=== PATIENT | male | born 1975 | race Asian ===

== ENCOUNTER 2017-10-20 23:58 | Emergency (ER) | payer OTHER ==
[2017-10-21 00:34] VITALS: BP 131/87; PULSE 90; TEMP 97.8; BMI 30.7
--- NOTE | 2017-10-21 00:41 | PDOC ---
History of Present Illness - General History Source: Patient Exam Limitations: No Limitations - History of Present Illness Initial Comments: 10/21/17 00:53 The patient is a 42 year old male, with a significant past medical history of asthma, diabetes, hypertension and hyperlipidemia, who presents to the emergency department with right ear pain for approximately 4 days. The patient reports right ear pain, which he describes as a throbbing for several days. Patient reports associated sinus congestion and difficulty swallowing secondary to pain, but denies any runny nose, sore throat, fever, chills, and cough. Today , patient endorses new onset heading, but denies any dizziness or lightheadedness. Patient states his symptoms began shortly after inserting a Qtip in his ears 4 days ago. He denies any abdominal pain, nausea, or vomiting. He denies any recent travel or sick contacts. Allergies: NKDA Past Surgical History: None reported Social History: Current everyday smoker. No ETOH or recreational drug use. <Benoit Dotson - Last Filed: 10/21/17 00:53> <Arline Estevez - Last Filed: 10/21/17 01:46> - General Chief Complaint: Ear Problem Stated Complaint: EAR PAIN Time Seen by Provider: 10/21/17 00:40 Past History <Benoit Dotson - Last Filed: 10/21/17 00:53> - Past Medical History Asthma: Yes COPD: No Diabetes: Yes HTN: Yes Hypercholesterolemia: Yes - Immunization History Immunization Up to Date: Yes - Suicide/Smoking/Psychosocial Hx Smoking History: Current every day smoker Have you smoked in the past 12 months: Yes Number of Cigarettes Smoked Daily: 10 Information on smoking cessation initiated: No 'Breaking Loose' booklet given: 05/24/16 Hx Alcohol Use: No Drug/Substance Use Hx: No Substance Use Type: None <Arline Estevez - Last Filed: 10/21/17 01:46> - Past Medical History Allergies/Adverse Reactions: Allergies Allergy/AdvReac Type Severity Reaction Status Date / Time No Known Allergies Allergy Verified 10/21/17 00:23 Home Medications: Ambulatory Orders Albuterol Sulfate Inhaler - [Ventolin HFA Inhaler -] 2 inh IH Q6H #1 inh Atorvastatin Ca [Lipitor] 40 mg PO HS #30 tablet 08/31/15 Metformin HCl 500 mg PO BID #60 tablet 08/31/15 Cyclobenzaprine HCl [Flexeril -] 10 mg PO TID #21 tablet 05/29/16 Review of Systems - Review of Systems Able to Perform ROS?: Yes Comments:: 10/21/17 00:53 GENERAL/CONSTITUTIONAL: No fever or chills. No weakness. HEAD, EYES, EARS, NOSE AND THROAT: +Right ear pain, nasal congestion, difficulty swallowing secondary to ear pain. No change in vision. No ear discharge. No sore throat. No rhinorrhea. GASTROINTESTINAL: No nausea, vomiting, diarrhea or constipation. GENITOURINARY: No dysuria, frequency, or change in urination. CARDIOVASCULAR: No chest pain or shortness of breath. RESPIRATORY: No cough, wheezing, or hemoptysis. MUSCULOSKELETAL: No joint or muscle swelling or pain. No neck or back pain. SKIN: No rash NEUROLOGIC: No headache, vertigo, loss of consciousness, or change in strength/ sensation. ENDOCRINE: No increased thirst. No abnormal weight change. HEMATOLOGIC/LYMPHATIC: No anemia, easy bleeding, or history of blood clots. ALLERGIC/IMMUNOLOGIC: No hives or skin allergy. <Benoit Dotson - Last Filed: 10/21/17 00:53> *Physical Exam - Vital Signs Last Vital Signs Temp Pulse Resp BP Pulse Ox 97.8 F 90 20 131/87 99 10/21/17 00:24 10/21/17 00:24 10/21/17 00:24 10/21/17 00:24 10/21/17 00:24 - Physical Exam Comments: 10/21/17 00:54 Constitutional: Awake, alert, oriented. No acute distress. Head: Mild right facial swelling. Normocephalic. Atraumatic Eyes: PERRL. EOMI. Conjunctivae are not pale. ENT: Moderate tenderness to right mastoid. Right TM erythema. Mucous membranes are moist and intact. Posterior pharynx without exudates or erythema. Uvula midline. Neck: Supple. Full ROM. No lymphadenopathy. Cardiovascular: Regular rate. Regular rhythm. S1, S2 regular. Distal pulses are 2+ and symmetric. Pulmonary/Chest: No evidence of respiratory distress. Clear to auscultation bilaterally No wheezing, rales or rhonchi. Abdominal: Soft and non-distended. There is no tenderness. No rebound, guarding or rigidity. No organomegaly. No palpable masses. Good bowel sounds. Back: No CVA tenderness. Musculoskeletal: No edema. No cyanosis. No clubbing. Full range of motion in all extremities. No calf tenderness. Radial/pedal pulses are intact and 2+ bilaterally Skin: Skin is warm and dry. No petechiae. No purpura. Neurological: Alert and oriented to person, place, and time. Cranial nerves II -XII are grossly intact. Normal speech. Strength is grossly symmetric. No sensory deficits. Psychiatric: Good eye contact. Normal interaction, affect and behavior. <Benoit Dotson - Last Filed: 10/21/17 00:53> - Vital Signs Last Vital Signs Temp Pulse Resp BP Pulse Ox 97.8 F 90 20 131/87 99 10/21/17 00:24 10/21/17 00:24 10/21/17 00:24 10/21/17 00:24 10/21/17 00:24 <Arline Estevez - Last Filed: 10/21/17 01:46> ED Treatment Course - LABORATORY CBC & Chemistry Diagram: 10/21/17 00:58 10/21/17 00:58 <Arline Estevez - Last Filed: 10/21/17 01:46> Medical Decision Making - Medical Decision Making 10/21/17 01:04 42yo male with R ear pain -pt with otitis media -ttp over R mastoid -concern for R otitis media with poss mastoiditis -will check labs, ct sinus for further eval of mastoid air cells -will give iv abx -will give ivf hydration, pain control -pt updated on plan and agrees with the plan 10/21/17 01:45 pt will be signed out to the oncoming ED physician pending CT sinus <Arline Estevez - Last Filed: 10/21/17 01:46> *DC/Admit/Observation/Transfer - Attestations Scribe Attestion: 10/21/17 00:56 Documentation prepared by Benoit Dotson, acting as medical representative for Arline Estevez DO. <Benoit Dotson - Last Filed: 10/21/17 00:53> - Attestations Physician Attestion: 10/21/17 01:46 I, Dr. Arline Estevez, DO, attest that this document has been prepared under my direction and personally reviewed by me in its entirety. I further attest, that it accurately reflects all work, treatment, procedures and medical decision -making performed by me. <Arline Estevez - Last Filed: 10/21/17 01:46> Diagnosis at time of Disposition: Diabetes, Right otitis media - Referrals Referrals: Teresita Rodríguez MS [Primary Care Provider] - - Patient Instructions - Post Discharge Activity
[2017-10-21] MEDS ORDERED: SODIUM CHLORIDE 0.9% 1000 ML INFUS.BAG IV ONE (00:51)
[2017-10-21] MEDS ORDERED: KETOROLAC TROMETHAMINE 30 MG/1 ML VIAL IVPUSH ONE (00:51)
[2017-10-21] MEDS ORDERED: CLINDAMYCIN 600MG PREMIX IVPB 600 MG/50 ML BAG IVPB ONE ×2 (00:54→01:05)
[2017-10-21] MEDS ORDERED: ACETAMINOPHEN 1000 MG/100 ML VIAL (NON FORMULARY) IVPB ONE (00:55)
[2017-10-21] MEDS ORDERED: KETOROLAC TROMETHAMINE 30 MG/1 ML VIAL ONE (01:00)
[2017-10-21 01:05] LABS: BASO % 0.4 % (0-2.0); EOS % 0.6 % (0-4.5); HEMATOCRIT 42.9 % (35.4-49); HEMOGLOBIN 14.8 GM/dL (11.7-16.9); MCH 31.4 pg (25.7-33.7); MCHC 34.5 g/dl (32.0-35.9); MEAN PLT VOLUME 9.4 fl (7.5-11.1); PLATELET COUNT 173 K/MM3 (134-434); RBC 4.71 M/mm3 (4.00-5.60); RDW 13.2 % (11.9-15.9); WHITE BLOOD COUNT 10.3 K/mm3 (4.0-10.0)
[2017-10-21] MEDS ORDERED: ACETAMINOPHEN INJECTION 100 ML IVPB ONE (01:05)
[2017-10-21 01:40] LABS: ALBUMIN 4.2 g/dl (3.4-5.0); ANION GAP 11 (8-16); BILIRUBIN,TOTAL 0.6 mg/dL (0.2-1.0); BLOOD UREA NITROGEN 18 mg/dL (7-18); CALCIUM 8.9 mg/dL (8.5-10.1); CHLORIDE 104 mmol/L (98-107); CO2 25 mmol/L (21-32); CREATININE 0.7 mg/dL (0.7-1.3); GLUCOSE,RANDOM 175 mg/dL (74-106); POTASSIUM 3.9 mmol/L (3.5-5.1); SGOT/AST 23 U/L (15-37); SGPT/ALT 72 U/L (12-78); SODIUM 140 mmol/L (136-145); TOT PROT 7.7 g/dl (6.4-8.2)
[2017-10-21 01:41] LABS: ALK PHOS 135 U/L (45-117)
--- NOTE | 2017-10-21 03:00 | PDOC ---
*Physical Exam - Vital Signs Last Vital Signs Temp Pulse Resp BP Pulse Ox 97.8 F 90 20 131/87 99 10/21/17 00:24 10/21/17 00:24 10/21/17 00:24 10/21/17 00:24 10/21/17 00:24 ED Treatment Course - LABORATORY CBC & Chemistry Diagram: 10/21/17 00:58 10/21/17 00:58 - ADDITIONAL ORDERS Additional order review: Laboratory Results 10/21/17 00:58 Sodium 140 Potassium 3.9 Chloride 104 Carbon Dioxide 25 Anion Gap 11 BUN 18 Creatinine 0.7 Creat Clearance w eGFR > 60 Random Glucose 175 H Calcium 8.9 Total Bilirubin 0.6 AST 23 D ALT 72 D Alkaline Phosphatase 135 H D Total Protein 7.7 D Albumin 4.2 10/21/17 00:58 RBC 4.71 MCV 91.0 MCHC 34.5 RDW 13.2 MPV 9.4 Neutrophils % 71.0 D Lymphocytes % 23.0 D Monocytes % 5.0 Eosinophils % 0.6 Basophils % 0.4 - Medications Given in the ED: ED Medications Discontinued Medications Generic Name Dose Route Start Last Admin Trade Name Freq PRN Reason Stop Dose Admin Acetaminophen 1,000 mg 10/21/17 00:55 10/21/17 01:06 Ofirmev Injection - IVPB 10/21/17 00:56 1,000 mg ONCE ONE Administration Clindamycin Phosphate 600 mg in 50 mls @ 100 mls/hr 10/21/17 00:54 10/21/17 01:09 Cleocin 600 Mg Premix Ivpb - IVPB 10/21/17 01:23 100 mls/hr ONCE ONE Administration Ketorolac Tromethamine 30 mg 10/21/17 00:51 10/21/17 01:03 Toradol Injection - IVPUSH 10/21/17 00:52 30 mg ONCE ONE Administration Sodium Chloride 1,000 ml 10/21/17 00:51 10/21/17 01:04 Normal Saline - IV 10/21/17 00:52 1,000 ml ONCE ONE Administration *DC/Admit/Observation/Transfer Diagnosis at time of Disposition: Diabetes, Right otitis media, Ethmoidal sinusitis - Discharge Dispostion Disposition: HOME Condition at time of disposition: Stable Admit: No - Referrals Referrals: Teresita Rodríguez MS [Primary Care Provider] - Stephen Barfield MD [Staff Physician] - - Patient Instructions Printed Discharge Instructions: DI for Otitis Media (Middle Ear Infection)- Child, DI for Sinusitis - Post Discharge Activity
--- NOTE | 2017-10-21 09:47 | PDOC ---
Patient Follow-up (Call Back) - Post ED Follow - Up Condition at time of discharge: Stable Disposition at time of original discharge: HOME Reason for Call Back: Radiology (Patient had CT of sinuses done last night. On read this morning by , by 5 mm nodule in the right ear canal. This was not reported on [facility]. Called patient and made aware. He will follow-up with Dr. Lico FERRARI.)
== END 2017-10-21 03:01 | disposition home or self-care (01) ==
LOC: JER 23:58
PROC: 3E03329 Introduction of Other Anti-infective into Peripheral Vein, Percutaneous Approach (ICD-10-PCS; principal; 2017-10-20)
PROC: 3E033NZ Introduction of Analgesics, Hypnotics, Sedatives into Peripheral Vein, Percutaneous Approach (ICD-10-PCS; 2017-10-20)
PROC: 3E0333Z Introduction of Anti-inflammatory into Peripheral Vein, Percutaneous Approach (ICD-10-PCS; 2017-10-20)
DX: H66.91 Otitis media, unspecified, right ear (principal); R22.9 Localized swelling, mass and lump, unspecified; I10 Essential (primary) hypertension; E11.9 Type 2 diabetes mellitus without complications; Z79.84 Long term (current) use of oral hypoglycemic drugs; J45.909 Unspecified asthma, uncomplicated; E78.00 Pure hypercholesterolemia, unspecified
CPT/HCPCS: 36415; 70486-TC; 80053; 85025; 99282-25; J0131; J7030

== ENCOUNTER 2018-05-14 17:27 | Emergency (ER) | payer OTHER ==
[2018-05-14 17:35] VITALS: BP 161/89; PULSE 85; TEMP 98.6; BMI 32.3
[2018-05-14] MEDS ORDERED: KETOROLAC TROMETHAMINE 60 MG/2 ML VIAL IM ONE (17:55)
[2018-05-14] MEDS ORDERED: CYCLOBENZAPRINE HCL 10 MG TABLET (FP) PO ONE (17:58)
[2018-05-14] MEDS ORDERED: SODIUM CHLORIDE 1,000 ML IV STA (18:15)
[2018-05-14] MEDS ORDERED: morphine CARPU-JECT 4 MG/1 ML DISP.SYRIN IVPUSH ONE (18:15)
[2018-05-14 18:35] LABS: BASO % 0.4 % (0-2.0); EOS % 1.3 % (0-4.5); HEMATOCRIT 43.2 % (35.4-49); HEMOGLOBIN 15.2 GM/dL (11.7-16.9); LYMPH % 38.7 % (8-40); MCH 32.3 pg (25.7-33.7); MCHC 35.3 g/dl (32.0-35.9); MEAN CELL VOLUME 91.5 fl (80-96); MONO % 8.1 % (3.8-10.2); NEUT % 51.5 % (42.8-82.8); PLATELET COUNT 182 K/MM3 (134-434); RBC 4.72 M/mm3 (4.00-5.60); RDW 13.1 % (11.9-15.9); WHITE BLOOD COUNT 9.7 K/mm3 (4.0-10.0)
[2018-05-14] MEDS ORDERED: MORPHINE SULFATE 2 MG/ML VIAL ONE (18:37)
[2018-05-14 18:44] LABS: URINE APPEARANCE CLEAR; URINE BILIRUBIN NEGATIVE (<2.0 mg/dL); URINE COLOR LTYELLOW; URINE GLUCOSE (UA) 2+ (NEGATIVE); URINE KETONE NEGATIVE (NEGATIVE); URINE LEUK ESTERASE NEGATIVE (NEGATIVE); URINE NITRITE NEGATIVE (NEGATIVE); URINE PROTEIN NEGATIVE (NEGATIVE)
[2018-05-14 19:10] LABS: ALBUMIN 4.3 g/dl (3.4-5.0); ALK PHOS 128 U/L (45-117); ANION GAP 9 MMOL/L (8-16); BILIRUBIN,TOTAL 0.6 mg/dL (0.2-1); BLOOD UREA NITROGEN 13 mg/dL (7-18); CALCIUM 8.6 mg/dL (8.5-10.1); CHLORIDE 104 mmol/L (98-107); CO2 26 mmol/L (21-32); CREATININE 0.7 mg/dL (0.55-1.3); GLUCOSE,RANDOM 155 mg/dL (74-106); POTASSIUM 4.3 mmol/L (3.5-5.1); SGOT/AST 34 U/L (15-37); SGPT/ALT 78 U/L (13-61); SODIUM 138 mmol/L (136-145); TOT PROT 7.7 g/dl (6.4-8.2)
--- NOTE | 2018-05-14 19:31 | PDOC ---
History of Present Illness <Tiffani Morin - Last Filed: 05/14/18 22:03> - General History Source: Patient Exam Limitations: No Limitations - History of Present Illness Initial Comments: 05/14/18 19:25 Pt is a 43yo m with PMH of DM, HTN, HLD presenting to ED with complaints of lower back pain with pain radiating to the groin. Pain started yesterday when patient finished working. Pain was sharp in lower back, constant 10/10 moving makes it worse. Pt said today the pain in going into his groin and suprapubic pain with paresthesia on the lateral L thigh. Admits to urinary urgency and frequency. Denies fever, chills, injury, n/v/d incontinence, saddle anesthesia, weakness, numbness, chest pain, SOB. Tried to use heating pad and burned himself. PMD: Carla PMH: see hpi PSH: see hpi Meds: see med rec Social: smokes 1/2ppd Allergies: nkda <Muna Moyer - Last Filed: 05/15/18 00:59> - General Chief Complaint: Back Pain Stated Complaint: BACK PAIN Time Seen by Provider: 05/14/18 17:48 Past History <Tiffani Morin - Last Filed: 05/14/18 22:03> - Past Medical History Asthma: Yes COPD: No Diabetes: Yes HTN: Yes Hypercholesterolemia: Yes - Immunization History Immunization Up to Date: Yes - Suicide/Smoking/Psychosocial Hx Smoking History: Current every day smoker Have you smoked in the past 12 months: Yes Number of Cigarettes Smoked Daily: 10 Information on smoking cessation initiated: No 'Breaking Loose' booklet given: 05/24/16 Hx Alcohol Use: No Drug/Substance Use Hx: No Substance Use Type: None <Muna Moyer - Last Filed: 05/15/18 00:59> - Past Medical History Allergies/Adverse Reactions: Allergies Allergy/AdvReac Type Severity Reaction Status Date / Time No Known Allergies Allergy Verified 05/14/18 17:35 Home Medications: Ambulatory Orders Albuterol Sulfate Inhaler - [Ventolin HFA Inhaler -] 2 inh IH Q6H #1 inh Atorvastatin Ca [Lipitor] 40 mg PO HS #30 tablet 08/31/15 metFORMIN HCL [Metformin HCl] 500 mg PO BID #60 tablet 08/31/15 Loratadine [Claritin] 10 mg PO DAILY #10 tablet 10/21/17 Diazepam [Valium] 5 mg PO Q8H PRN #10 tablet MDD 3 05/14/18 Ibuprofen 600 mg PO TID PRN #90 tablet MDD 3 05/14/18 Ibuprofen [Motrin -] 600 mg PO TID PRN #90 tablet MDD 3 05/14/18 Oxycodone HCl/Acetaminophen [Percocet 5-325 mg Tablet] 1 tab PO Q4H PRN #15 tablet MDD 6 05/14/18 Review of Systems - Review of Systems Constitutional: No: Chills, Fever HEENTM: No: Symptoms Reported Respiratory: No: Cough, Shortness of Breath Cardiac (ROS): No: Chest Pain, Lightheadedness, Palpitations, Syncope ABD/GI: Yes: See HPI, Abdominal cramping (suprapubic). No: Blood Streaked Bowels, Constipated, Diarrhea, Nausea, Vomiting, Tarry Stools : Yes: See HPI, Frequency, Flank Pain, Urgency. No: Burning, Hematuria, Incontinence, Testicular Mass, Testicular Swelling, Testicular Pain Musculoskeletal: Yes: See HPI, Back Pain (lower back pain bilaterally L>R). No : Joint Pain, Joint Swelling, Muscle Weakness, Neck Pain Integumentary: Yes: Other (blister on back ) Neurological: Yes: Paresthesia (L thigh). No: Headache, Seizure, Tingling, Weakness, Ataxia <Muna Moyer - Last Filed: 05/15/18 00:59> *Physical Exam - Vital Signs Last Vital Signs Temp Pulse Resp BP Pulse Ox 98.6 F 85 18 161/89 96 05/14/18 17:33 05/14/18 17:33 05/14/18 17:33 05/14/18 17:33 05/14/18 17:33 <Tiffani Morin - Last Filed: 05/14/18 22:03> - Vital Signs Last Vital Signs Temp Pulse Resp BP Pulse Ox 98.6 F 85 18 161/89 96 05/14/18 17:33 05/14/18 17:33 05/14/18 17:33 05/14/18 17:33 05/14/18 17:33 - Physical Exam General Appearance: Yes: Nourished, Appropriately Dressed, Moderate Distress HEENT: positive: EOMI, TJ, Normal ENT Inspection Neck: positive: Trachea midline, Supple. negative: Lymphadenopathy (R), Lymphadenopathy (L) Respiratory/Chest: positive: Lungs Clear, Normal Breath Sounds. negative: Crackles, Rales, Rhonchi, Stridor, Wheezing Cardiovascular: positive: Regular Rhythm, Regular Rate, S1, S2. negative: Edema , JVD, Murmur Vascular Pulses: Carotid (R): 2+, Carotid (L): 2+, Dorsalis-Pedis (R): 2+, Doralis-Pedis (L): 2+ Gastrointestinal/Abdominal: positive: Normal Bowel Sounds, Soft. negative: Distended, Guarding, Rebound, Tenderness, Hernia Male Genitalia: positive: normal genitalia. negative: testicular tenderness, testicular mass Musculoskeletal: positive: CVA Tenderness, CVA Tenderness (R), CVA Tenderness (L ), Muscle Spasm, Other (pain with SLR in back, not radiating down to legs on both sides.). 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 negative: Sensory Deficit <Muna Moyer - Last Filed: 05/15/18 00:59> ED Treatment Course - LABORATORY CBC & Chemistry Diagram: 05/14/18 18:18 05/14/18 18:18 - ADDITIONAL ORDERS Additional order review: Laboratory Results 05/14/18 05/14/18 18:18 18:18 Sodium 138 Potassium 4.3 Chloride 104 Carbon Dioxide 26 Anion Gap 9 BUN 13 Creatinine 0.7 Creat Clearance w eGFR > 60 Random Glucose 155 H Calcium 8.6 Total Bilirubin 0.6 AST 34 ALT 78 H Alkaline Phosphatase 128 H Total Protein 7.7 Albumin 4.3 Urine Color Ltyellow Urine Appearance Clear Urine pH 7.0 Ur Specific [place] 1.017 Urine Protein Negative Urine Glucose (UA) 2+ H Urine Ketones Negative Urine Blood Negative Urine Nitrite Negative Urine Bilirubin Negative Urine Urobilinogen 2.0 Ur Leukocyte Esterase Negative 05/14/18 18:18 RBC 4.72 MCV 91.5 MCHC 35.3 RDW 13.1 MPV 9.0 Neutrophils % 51.5 D Lymphocytes % 38.7 D Monocytes % 8.1 Eosinophils % 1.3 D Basophils % 0.4 - Medications Given in the ED: ED Medications Discontinued Medications Generic Name Dose Route Start Last Admin Trade Name Sanam PRN Reason Stop Dose Admin Cyclobenzaprine HCl 10 mg 05/14/18 17:58 05/14/18 18:42 Flexeril - PO 05/14/18 17:59 Not Given ONCE ONE Sodium Chloride 1,000 mls @ 1,000 mls/hr 05/14/18 18:15 05/14/18 18:35 Normal Saline - IV 05/14/18 19:14 1,000 mls/hr ASDIR STA Administration Ketorolac Tromethamine 60 mg 05/14/18 17:55 05/14/18 18:41 Toradol Injection - IM 05/14/18 17:56 Not Given ONCE ONE Ketorolac Tromethamine 30 mg 05/14/18 21:05 05/14/18 21:06 Toradol Injection - IM 05/14/18 21:06 30 mg ONCE ONE Administration Morphine Sulfate 2 mg 05/14/18 18:15 05/14/18 18:39 Morphine Injection - IVPUSH 05/14/18 18:16 2 mg ONCE ONE Administration <Tiffani Morin - Last Filed: 05/14/18 22:03> - LABORATORY CBC & Chemistry Diagram: 05/14/18 18:18 05/14/18 18:18 - ADDITIONAL ORDERS Additional order review: Laboratory Results 05/14/18 05/14/18 18:18 18:18 Sodium 138 Potassium 4.3 Chloride 104 Carbon Dioxide 26 Anion Gap 9 BUN 13 Creatinine 0.7 Creat Clearance w eGFR > 60 Random Glucose 155 H Calcium 8.6 Total Bilirubin 0.6 AST 34 ALT 78 H Alkaline Phosphatase 128 H Total Protein 7.7 Albumin 4.3 Urine Color Ltyellow Urine Appearance Clear Urine pH 7.0 Ur Specific [place] 1.017 Urine Protein Negative Urine Glucose (UA) 2+ H Urine Ketones Negative Urine Blood Negative Urine Nitrite Negative Urine Bilirubin Negative Urine Urobilinogen 2.0 Ur Leukocyte Esterase Negative 05/14/18 18:18 RBC 4.72 MCV 91.5 MCHC 35.3 RDW 13.1 MPV 9.0 Neutrophils % 51.5 D Lymphocytes % 38.7 D Monocytes % 8.1 Eosinophils % 1.3 D Basophils % 0.4 - RADIOLOGY Radiology Studies Ordered: Category Date Time Status SPIRAL- RENAL-STONE CT [CT] Stat CT Scan 05/14/18 18:16 Ordered - Medications Given in the ED: ED Medications Discontinued Medications Generic Name Dose Route Start Last Admin Trade Name Freq PRN Reason Stop Dose Admin Cyclobenzaprine HCl 10 mg 05/14/18 17:58 05/14/18 18:42 Flexeril - PO 05/14/18 17:59 Not Given ONCE ONE Sodium Chloride 1,000 mls @ 1,000 mls/hr 05/14/18 18:15 05/14/18 18:35 Normal Saline - IV 05/14/18 19:14 1,000 mls/hr ASDIR STA Administration Ketorolac Tromethamine 60 mg 05/14/18 17:55 05/14/18 18:41 Toradol Injection - IM 05/14/18 17:56 Not Given ONCE ONE Morphine Sulfate 2 mg 05/14/18 18:15 05/14/18 18:39 Morphine Injection - IVPUSH 05/14/18 18:16 2 mg ONCE ONE Administration <Muna Moyer - Last Filed: 05/15/18 00:59> Medical Decision Making - Medical Decision Making 05/14/18 19:29 Pt is a 43yo m with PMH of DM, HTN, HLD presenting to ED with complaints of lower back pain with pain radiating to the groin. +urgency Vitals: Selected Entries 05/14/18 17:33 Temperature 98.6 F Pulse Rate 85 Respiratory 18 Rate Blood Pressure 161/89 Blood Pressure 113 Mean O2 Sat by Pulse 96 Oximetry (%) PE: pain reproducible with SLT, no pain down leg. Blister on lower back, clean no erythema. flank tenderness. normal testicular exam. DDx: sciatica, cauda equina, nephrolithasis, pyelonephritis, fracture Low suspicion for fracture given pt does not have injury. Was lifting things at work, could have sciatica. Poss nephrolithiasis or pyelo given urinary symptoms. Higher suspicion for sciatia although SLT negative. orderd cbc, cmp, ua, ucx. PT given fluids and morphine (flexeril and toradol given by RME) 05/14/18 19:34 Laboratory Tests 05/14/18 05/14/18 05/14/18 18:18 18:18 18:18 WBC 9.7 RBC 4.72 Hgb 15.2 Hct 43.2 Plt Count 182 Sodium 138 Potassium 4.3 Chloride 104 BUN 13 Creatinine 0.7 Random Glucose 155 H ALT 78 H Alkaline Phosphatase 128 H Urine Glucose (UA) 2+ H Urine Ketones Negative Urine Blood Negative Urine Nitrite Negative Urine Bilirubin Negative Urine Urobilinogen 2.0 Ur Leukocyte Esterase Negative No evidence of UTI, low suspicion for pyelo or septic stone (if CT positive for stone). No white count, makes abscess less likely. Waiting CT scan 05/14/18 21:18 CT: *Moderate diffuse micro-nodularity throughout the liver. Findings may be due to hepatic steatosis, metastatic disease, regenerating nodules, or other infiltrative liver disorders. Recommend dedicated hepatic MRI for further evaluation. The gallbladder, pancreas, adrenal glands, and spleen are grossly unremarkable. No renal or urinary calculi. No AAA. No evidence for diverticulitis, appendicitis, small bowel obstruction, free fluid, or free air. Small right inguinal hernia containing fat. 05/14/18 21:20 Pt complaining of back pain. Records show toradol and flexeril were given to patient however they were not. Gave 30mg Toradol will reevaluate Pt most likely has sciatica or back strain. low suspicion for fracture given pt does not recall injury. Pt aware of fatty liver. Pt hemodynamically stable and pain controlled with toradol. Can be dc home . given GI and neuro follow up. <Muna Moyer - Last Filed: 05/15/18 00:59> *DC/Admit/Observation/Transfer <Tiffani Morin - Last Filed: 05/14/18 22:03> - Discharge Dispostion Decision to Admit order: No <Muna Moyer - Last Filed: 05/15/18 00:59> Diagnosis at time of Disposition: Back pain Qualifiers: Back pain location: low back pain Chronicity: acute Back pain laterality: bilateral Sciatica presence: with sciatica Sciatica laterality: sciatica of left side Qualified Code(s): M54.42 - Lumbago with sciatica, left side - Discharge Dispostion Disposition: HOME Condition at time of disposition: Good - Prescriptions Prescriptions: Diazepam [Valium] 5 mg PO Q8H PRN #10 tablet MDD 3 PRN Reason: Muscle Spasms Ibuprofen 600 mg PO TID PRN #90 tablet MDD 3 PRN Reason: Pain Ibuprofen [Motrin -] 600 mg PO TID PRN #90 tablet MDD 3 PRN Reason: Pain Oxycodone HCl/Acetaminophen [Percocet 5-325 mg Tablet] 1 tab PO Q4H PRN #15 tablet MDD 6 PRN Reason: Pain - Referrals Referrals: Teresita Rodríguez MS [Primary Care Provider] - Darryn Eckert MD [Staff Physician] - Juan Massey DO [Staff Physician] - - Patient Instructions Printed Discharge Instructions: DI for Low Back Pain Additional Instructions: You were seen here today for back pain. Your tests were normal. The CT scan showed a fatty liver. I recommend following up with a Head Holder for this. You will be given prescriptions to help with the pain and spasms. MOtrin and Valium. Take as directed. 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 Please follow up with a solar energy engineer for your liver: Dr. Massey I also recommend following up with a neurologist for your back pain: Dr. Eckert As always, make an appointment to see your doctor regularly Come back to the emergency room if your pain gets worse, you are unable to walk , you have numbness in your legs, you start having incontinence, or if any new concerning symptom develops. Thank you - Post Discharge Activity
--- NOTE | 2018-05-14 20:46 | PDOC ---
Attending Attestation - ED Attending Attestation I have performed the following: I have examined & evaluated the patient, The case was reviewed & discussed with the resident, I agree w/resident's findings & plan, Exceptions are as noted - Physicial Exam PE: 05/14/18 20:44 awake alert lungs clear bilaterally heart rrr no mrg. abd soft nt nd. ext wwp. no midline spinal tenderness. paraspinal muscle spasm bilaterally. positive straight leg raise on left. sensation intact bilat lower ext. no saddle anesthesia. 5/5 bilat lower ext strength. skin warm and dry no rash. nuero alert oriented x 3. symmetric strength. - Medical Decision Making 05/14/18 20:45 pt with likely msk starin, lumbar strain sciatica. however due to c/o urinary sxs, and sharp nature to pain will obtain ct spiral. and ua. pain control with toradol and muscle relaxers. narcotics as needed. <Tiffani Morin - Last Filed: 05/14/18 20:44> - HPI HPI: 05/14/18 20:46 The patient is a 43-year-old male with a past medical history significant for HTN, HLD, and DM presents to the emergency department with lower back pain. The patient presents with a sudden onset of lower back pain that presented yesterday , with radiation to the groin. The patient reports the pain is constant with sharp quality, thats exacerbated with movement, with improvement noted with laying down. The patient reports associated concern of increased urgency to urinate and numbness down the L. leg denies shooting pain. Denies nausea, vomiting, diarrhea, dysuria, hematuria, fever, chills, chest pain or shortness of breath. Allergies: NKA Social history: Current daily smoker. No past or present use of alcohol or recreational drug. PCP: Teresita Rodríguez MS - Medical Decision Making 05/14/18 20:46 Documentation prepared by Tori Velez, acting as medical equipment repair technician for Tiffani Morin MD. <Tori Velez - Last Filed: 05/14/18 20:47>
[2018-05-14] MEDS ORDERED: KETOROLAC TROMETHAMINE 30 MG/1 ML VIAL IM ONE (21:05)
[2018-05-14] MEDS ORDERED: KETOROLAC TROMETHAMINE 30 MG/1 ML VIAL ONE (21:06)
== END 2018-05-14 22:05 | disposition home or self-care (01) ==
LOC: JER 17:27 → JERFT 17:27 → JER 22:05
PROC: 3E0337Z Introduction of Electrolytic and Water Balance Substance into Peripheral Vein, Percutaneous Approach (ICD-10-PCS; principal; 2018-05-14)
PROC: 3E033NZ Introduction of Analgesics, Hypnotics, Sedatives into Peripheral Vein, Percutaneous Approach (ICD-10-PCS; 2018-05-14)
PROC: 3E0233Z Introduction of Anti-inflammatory into Muscle, Percutaneous Approach (ICD-10-PCS; 2018-05-14)
DX: M54.42 Lumbago with sciatica, left side (principal); K76.0 Fatty (change of) liver, not elsewhere classified
CPT/HCPCS: 36415; 74176; 80053; 81003; 85025; 87086; 96361; 96372; 96374; 99283-25; J7030

== ENCOUNTER 2022-07-25 16:22 | Inpatient (IN) | payer OTHER ==
[2022-07-25 16:53] VITALS: BMI 30.7
[2022-07-25] MEDS ORDERED: IBUPROFEN 400 MG TABLET (FP) PO ONE ×2 (17:35→17:42)
[2022-07-25] MEDS: ALBUTEROL SO4 2.5/IPRATROPIUM 0.5 INH SOL 3 ML VIAL.NEB. NEB SCH ×3 (17:49→19:20)
[2022-07-25 18:06] LABS: BASO % 0.4 % (0-2.0); EOS % 0.2 % (0-4.5); HEMATOCRIT 43.7 % (35.4-49); HEMOGLOBIN 14.7 GM/dL (11.7-16.9); LYMPH % 15.4 % (8-40); MCHC 33.6 g/dl (32.0-35.9); MEAN CELL VOLUME 92.1 fl (80-96); MONO % 3.9 % (3.8-10.2); NEUT % 80.1 % (42.8-82.8); PLATELET COUNT 204 10^3/uL (134-434); RBC 4.75 M/mm3 (4.00-5.60); RDW 13.8 % (11.9-15.9); WHITE BLOOD COUNT 11.7 K/mm3 (4.0-10.0)
[2022-07-25 18:07] LABS: ALBUMIN 4.3 g/dl (3.4-5.0)
[2022-07-25 18:10] LABS: CREATININE 0.9 mg/dL (0.55-1.3)
[2022-07-25 18:11] LABS: BILIRUBIN,TOTAL 1.2 mg/dL (0.2-1); TOT PROT 7.6 g/dl (6.4-8.2)
[2022-07-25 18:15] LABS: N-TERMINAL BNP 133.1 pg/ml (5-125)
[2022-07-25 18:17] LABS: INR 1.06 (0.83-1.09); PROTHROMBIN TIME (PATIENT) 12.2 SEC (9.7-13.0)
[2022-07-25 18:19] LABS: ACTIVATED PTT 32.8 SECONDS (25.2-36.5)
[2022-07-25] MEDS ORDERED: MAGNESIUM SULF 50% (8.12 MEQ/2 ML-1 GM VIAL) IVPB ONE (18:57)
[2022-07-25] MEDS ORDERED: ALBUTEROL SO4 2.5/IPRATROPIUM 0.5 INH SOL 3 ML VIAL.NEB. NEB ONE ×2 (18:58→19:24)
[2022-07-25] MEDS ORDERED: MAGNESIUM SULFATE IN WATER 2 GM/50 ML IVPB IVPB ONE (19:24)
[2022-07-25] MEDS ORDERED: DEXAMETHASONE SOD PHOSPHATE 10 MG/1 ML VIAL IVPUSH ONE (19:41)
[2022-07-25] MEDS ORDERED: DEXAMETHASONE SOD PHOSPHATE 10 MG/1 ML VIAL ONE (19:54)
[2022-07-25 20:28] LABS: VENOUS O2 SATURATION 93.7 % (70-80); VENOUS PCO2 42.9 mmHg (38-52); VENOUS PH 7.401 (7.310-7.410)
[2022-07-25] MEDS ORDERED: ACETAMINOPHEN 1000 MG/100 ML BAG IVPB PRN (21:59)
[2022-07-25] MEDS ORDERED: ACETAMINOPHEN INJECTION 100 ML IVPB ONE (22:29)
[2022-07-26] MEDS ORDERED: ALBUTEROL SO4 2.5/IPRATROPIUM 0.5 INH SOL 3 ML VIAL.NEB. NEB ONE (02:49)
[2022-07-26] MEDS ORDERED: CEFTRIAXONE 1 GM/50 ML BAG ONE (02:49)
[2022-07-26] MEDS: CEFTRIAXONE 1 GM in DEXTROSE 5%-WATER - 50 ML IVPB ONE ×2 (02:59→03:00)
[2022-07-26] MEDS ORDERED: AZITHROMYCIN IVPB 500 MG/250 ML BAG IVPB ONE ×2 (03:00→03:26)
[2022-07-26] MEDS: ALBUTEROL SO4 2.5/IPRATROPIUM 0.5 INH SOL 3 ML VIAL.NEB. NEB PRN ×2 (03:00→22:27)
[2022-07-26 04:24] LABS: URINE APPEARANCE CLEAR; URINE BILIRUBIN NEGATIVE (NEGATIVE); URINE COLOR YELLOW; URINE GLUCOSE (UA) 3+ (NEGATIVE); URINE KETONE TRACE (NEGATIVE); URINE LEUK ESTERASE NEGATIVE (NEGATIVE); URINE NITRITE NEGATIVE (NEGATIVE); URINE PROTEIN NEGATIVE (NEGATIVE); URINE UROBILINOGEN 0.2 mg/dL (0.2-1.0)
[2022-07-26] MEDS: INSULIN SLIDING SCALE (NOVOLOG) 1 VIAL SQ SCH ×4 (08:31→22:13)
[2022-07-26] MEDS ORDERED: ENALAPRIL MALEATE 5 MG TABLET ONE (08:59)
[2022-07-26] MEDS ORDERED: metoPROLOL SUCCINATE 25 MG TAB.SR.24H (FP) PO ONE (09:00)
[2022-07-26] MEDS ORDERED: NICOTINE 14 MG/24 HOURS TOPICAL PATCH TD ONE (09:00)
[2022-07-26] MEDS ORDERED: ASPIRIN COATED 81 MG TABLET.EC ONE (09:00)
[2022-07-26] MEDS ORDERED: ENOXAPARIN NA (PORCINE) 40 MG/0.4 ML DISP.SYRIN SQ ONE (09:00)
[2022-07-26] MEDS: metoPROLOL SUCCINATE 25 MG TAB.SR.24H (FP) PO SCH (09:16)
[2022-07-26] MEDS: ENALAPRIL MALEATE 5 MG TABLET PO SCH (09:16)
[2022-07-26] MEDS: ENOXAPARIN NA (PORCINE) 40 MG/0.4 ML DISP.SYRIN SQ SCH (09:16)
[2022-07-26] MEDS: NICOTINE 14 MG/24 HOURS TOPICAL PATCH TD SCH (09:16)
[2022-07-26 09:33] LABS: INR 1.09 (0.83-1.09); PROTHROMBIN TIME (PATIENT) 12.6 SEC (9.7-13.0)
[2022-07-26 09:38] LABS: BASO % 0.2 % (0-2.0); HEMATOCRIT 43.4 % (35.4-49); HEMOGLOBIN 14.6 GM/dL (11.7-16.9); LYMPH % 12.3 % (8-40); MCH 30.9 pg (25.7-33.7); MCHC 33.7 g/dl (32.0-35.9); MEAN CELL VOLUME 91.8 fl (80-96); MEAN PLT VOLUME 8.8 fl (7.5-11.1); MONO % 1.8 % (3.8-10.2); NEUT % 85.7 % (42.8-82.8); PLATELET COUNT 197 10^3/uL (134-434); RBC 4.73 M/mm3 (4.00-5.60); RDW 13.6 % (11.9-15.9); WHITE BLOOD COUNT 7.2 K/mm3 (4.0-10.0)
[2022-07-26] MEDS ORDERED: ASPIRIN COATED 81 MG TABLET.EC PO SCH (10:00)
[2022-07-26 10:06] LABS: CALCIUM 8.9 mg/dL (8.5-10.1)
[2022-07-26 10:07] LABS: CREATININE 0.7 mg/dL (0.55-1.3); MAGNESIUM 2.2 mg/dL (1.8-2.4)
[2022-07-26 10:08] LABS: TOT PROT 7.4 g/dl (6.4-8.2)
[2022-07-26 10:14] LABS: ALBUMIN 4.1 g/dl (3.4-5.0)
[2022-07-26 10:15] LABS: BILIRUBIN,TOTAL 0.7 mg/dL (0.2-1); BLOOD UREA NITROGEN 14.8 mg/dL (7-18); PHOSPHOROUS 3.9 mg/dL (2.5-4.9)
[2022-07-26] MEDS ORDERED: RANOLAZINE E.R. 500 MG TABLET (FP) ONE (11:07)
[2022-07-26] MEDS ORDERED: LIDOCAINE 5% TOPICAL PATCH ONE (11:07)
[2022-07-26] MEDS: LIDOCAINE 5% TOPICAL PATCH TP SCH (11:11)
[2022-07-26] MEDS: ASPIRIN 81 MG CHEWABLE TABLETS PO SCH (11:11)
[2022-07-26] MEDS: TICAGRELOR 60 MG TABLET PO SCH ×2 (12:24→22:03)
[2022-07-26] MEDS: RANOLAZINE E.R. 500 MG TABLET (FP) PO SCH ×2 (12:25→22:06)
[2022-07-26] MEDS: LIDOCAINE PATCH REMOVAL MC SCH (22:04)
[2022-07-26] MEDS: ATORVASTATIN CA 40 MG TABLET (FP) PO SCH (22:04)
[2022-07-26] MEDS: MONTELUKAST NA 10 MG TABLET PO SCH (22:07)
[2022-07-27] MEDS: ALBUTEROL SO4 2.5/IPRATROPIUM 0.5 INH SOL 3 ML VIAL.NEB. NEB PRN ×3 (05:57→22:19)
[2022-07-27] MEDS: INSULIN SLIDING SCALE (NOVOLOG) 1 VIAL SQ SCH ×4 (06:02→21:35)
[2022-07-27 08:10] LABS: BASO % 0.2 % (0-2.0); EOS % 0.5 % (0-4.5); HEMATOCRIT 42.7 % (35.4-49); HEMOGLOBIN 14.2 GM/dL (11.7-16.9); LYMPH % 28.3 % (8-40); MCH 30.9 pg (25.7-33.7); MCHC 33.3 g/dl (32.0-35.9); MEAN CELL VOLUME 92.6 fl (80-96); MEAN PLT VOLUME 8.8 fl (7.5-11.1); MONO % 8.6 % (3.8-10.2); NEUT % 62.4 % (42.8-82.8); PLATELET COUNT 202 10^3/uL (134-434); RBC 4.61 M/mm3 (4.00-5.60); RDW 14.2 % (11.9-15.9); WHITE BLOOD COUNT 14.2 K/mm3 (4.0-10.0)
[2022-07-27 08:21] LABS: ALBUMIN 3.8 g/dl (3.4-5.0); BLOOD UREA NITROGEN 25.3 mg/dL (7-18); CALCIUM 8.4 mg/dL (8.5-10.1)
[2022-07-27 08:24] LABS: CREATININE 0.8 mg/dL (0.55-1.3)
[2022-07-27 08:26] LABS: BILIRUBIN,TOTAL 0.9 mg/dL (0.2-1); TOT PROT 7.1 g/dl (6.4-8.2)
[2022-07-27] MEDS: metoPROLOL SUCCINATE 25 MG TAB.SR.24H (FP) PO SCH (09:27)
[2022-07-27] MEDS: ENOXAPARIN NA (PORCINE) 40 MG/0.4 ML DISP.SYRIN SQ SCH (09:27)
[2022-07-27] MEDS: NICOTINE 14 MG/24 HOURS TOPICAL PATCH TD SCH (09:27)
[2022-07-27] MEDS: RANOLAZINE E.R. 500 MG TABLET (FP) PO SCH ×2 (09:27→21:34)
[2022-07-27] MEDS: ASPIRIN 81 MG CHEWABLE TABLETS PO SCH (09:27)
[2022-07-27] MEDS: LIDOCAINE 5% TOPICAL PATCH TP SCH (09:27)
[2022-07-27] MEDS: TICAGRELOR 60 MG TABLET PO SCH ×2 (09:28→21:34)
[2022-07-27] MEDS: ENALAPRIL MALEATE 5 MG TABLET PO SCH (09:28)
[2022-07-27] MEDS: AZITHROMYCIN IVPB 250 MG in DEXTROSE 5%-WATER - 250 ML IVPB SCH (09:44)
[2022-07-27] MEDS: BUDESONIDE/FORMETEROL FUMARATE 160/4.5 mcg INHALER IH SCH ×2 (10:37→17:34)
[2022-07-27] MEDS: guaiFENesin 600 MG TABLET.ER (FP) PO SCH ×2 (11:51→21:34)
[2022-07-27] MEDS: LIDOCAINE PATCH REMOVAL MC SCH (21:34)
[2022-07-27] MEDS: MONTELUKAST NA 10 MG TABLET PO SCH (21:34)
[2022-07-27] MEDS: ATORVASTATIN CA 40 MG TABLET (FP) PO SCH (21:34)
[2022-07-28] MEDS: BUDESONIDE/FORMETEROL FUMARATE 160/4.5 mcg INHALER IH SCH ×2 (06:17→19:40)
[2022-07-28] MEDS: INSULIN SLIDING SCALE (NOVOLOG) 1 VIAL SQ SCH ×4 (06:18→22:07)
[2022-07-28 08:09] LABS: BASO % 0.1 % (0-2.0); EOS % 0.6 % (0-4.5); HEMATOCRIT 43.4 % (35.4-49); HEMOGLOBIN 14.3 GM/dL (11.7-16.9); LYMPH % 37.7 % (8-40); MCH 30.5 pg (25.7-33.7); MCHC 32.8 g/dl (32.0-35.9); MEAN CELL VOLUME 92.8 fl (80-96); MEAN PLT VOLUME 8.7 fl (7.5-11.1); MONO % 10.5 % (3.8-10.2); NEUT % 51.1 % (42.8-82.8); PLATELET COUNT 190 10^3/uL (134-434); RBC 4.68 M/mm3 (4.00-5.60); RDW 14.1 % (11.9-15.9); WHITE BLOOD COUNT 9.3 K/mm3 (4.0-10.0)
[2022-07-28 08:28] LABS: BLOOD UREA NITROGEN 14.6 mg/dL (7-18); CALCIUM 8.7 mg/dL (8.5-10.1)
[2022-07-28 08:29] LABS: ALBUMIN 3.6 g/dl (3.4-5.0)
[2022-07-28 08:31] LABS: CREATININE 0.6 mg/dL (0.55-1.3)
[2022-07-28 08:33] LABS: BILIRUBIN,TOTAL 1.6 mg/dL (0.2-1)
[2022-07-28] MEDS: metoPROLOL SUCCINATE 25 MG TAB.SR.24H (FP) PO SCH (10:32)
[2022-07-28] MEDS: TICAGRELOR 60 MG TABLET PO SCH ×2 (10:32→22:07)
[2022-07-28] MEDS: ENOXAPARIN NA (PORCINE) 40 MG/0.4 ML DISP.SYRIN SQ SCH (10:32)
[2022-07-28] MEDS: ASPIRIN 81 MG CHEWABLE TABLETS PO SCH (10:32)
[2022-07-28] MEDS: RANOLAZINE E.R. 500 MG TABLET (FP) PO SCH ×2 (10:32→22:07)
[2022-07-28] MEDS: guaiFENesin 600 MG TABLET.ER (FP) PO SCH ×2 (10:32→22:07)
[2022-07-28] MEDS: ENALAPRIL MALEATE 5 MG TABLET PO SCH (10:33)
[2022-07-28] MEDS: NICOTINE 14 MG/24 HOURS TOPICAL PATCH TD SCH (10:33)
[2022-07-28] MEDS: AZITHROMYCIN IVPB 250 MG in DEXTROSE 5%-WATER - 250 ML IVPB SCH (10:34)
[2022-07-28] MEDS: LIDOCAINE 5% TOPICAL PATCH TP SCH (10:37)
[2022-07-28] MEDS ORDERED: ACETAMINOPHEN 325 MG TABLET (FP) PO PRN (11:29)
[2022-07-28] MEDS: predniSONE 20 MG TABLET (UD) PO SCH (12:00)
[2022-07-28] MEDS: ALBUTEROL SO4 2.5/IPRATROPIUM 0.5 INH SOL 3 ML VIAL.NEB. NEB PRN ×2 (15:29→20:07)
[2022-07-28] MEDS: MONTELUKAST NA 10 MG TABLET PO SCH (22:07)
[2022-07-28] MEDS: ATORVASTATIN CA 40 MG TABLET (FP) PO SCH (22:07)
[2022-07-28] MEDS: LIDOCAINE PATCH REMOVAL MC SCH (22:12)
[2022-07-28 23:30] VITALS: RESP 18
[2022-07-29] MEDS: BUDESONIDE/FORMETEROL FUMARATE 160/4.5 mcg INHALER IH SCH (06:25)
[2022-07-29] MEDS: INSULIN SLIDING SCALE (NOVOLOG) 1 VIAL SQ SCH ×2 (07:42→12:36)
[2022-07-29] MEDS: ALBUTEROL SO4 2.5/IPRATROPIUM 0.5 INH SOL 3 ML VIAL.NEB. NEB PRN (07:50)
[2022-07-29 08:37] LABS: BASO % 0.2 % (0-2.0); EOS % 0.6 % (0-4.5); HEMATOCRIT 42.9 % (35.4-49); HEMOGLOBIN 14.2 GM/dL (11.7-16.9); LYMPH % 34.1 % (8-40); MCH 30.6 pg (25.7-33.7); MCHC 33.2 g/dl (32.0-35.9); MEAN CELL VOLUME 92.3 fl (80-96); MONO % 7.4 % (3.8-10.2); NEUT % 57.7 % (42.8-82.8); PLATELET COUNT 200 10^3/uL (134-434); RBC 4.64 M/mm3 (4.00-5.60); RDW 13.5 % (11.9-15.9); WHITE BLOOD COUNT 10.1 K/mm3 (4.0-10.0)
[2022-07-29 09:51] LABS: CALCIUM 8.8 mg/dL (8.5-10.1)
[2022-07-29 09:52] LABS: BLOOD UREA NITROGEN 14.9 mg/dL (7-18)
[2022-07-29 09:55] LABS: CREATININE 0.6 mg/dL (0.55-1.3)
[2022-07-29 10:35] VITALS: BP 119/75; TEMP 98.2
[2022-07-29] MEDS: AZITHROMYCIN IVPB 250 MG in DEXTROSE 5%-WATER - 250 ML IVPB SCH (10:36)
[2022-07-29] MEDS: NICOTINE 14 MG/24 HOURS TOPICAL PATCH TD SCH (10:36)
[2022-07-29] MEDS: LIDOCAINE 5% TOPICAL PATCH TP SCH (10:36)
[2022-07-29] MEDS: ASPIRIN 81 MG CHEWABLE TABLETS PO SCH (10:37)
[2022-07-29] MEDS: RANOLAZINE E.R. 500 MG TABLET (FP) PO SCH (10:37)
[2022-07-29] MEDS: predniSONE 20 MG TABLET (UD) PO SCH (10:37)
[2022-07-29] MEDS: ENOXAPARIN NA (PORCINE) 40 MG/0.4 ML DISP.SYRIN SQ SCH (10:37)
[2022-07-29] MEDS: ENALAPRIL MALEATE 5 MG TABLET PO SCH (10:37)
[2022-07-29] MEDS: TICAGRELOR 60 MG TABLET PO SCH (10:37)
[2022-07-29] MEDS: metoPROLOL SUCCINATE 25 MG TAB.SR.24H (FP) PO SCH (10:38)
[2022-07-29] MEDS: guaiFENesin 600 MG TABLET.ER (FP) PO SCH (10:38)
[2022-07-29 13:37] VITALS: PULSE 180
== END 2022-07-29 14:20 | disposition home or self-care (01) | DRG 139 ==
LOC: JER 16:22 → JERBED 19:35 → OBSVTOIN 23:50 → J4W 07-26 17:34
PROVIDERS: ADMIT Internal Medicine; ATTEND Internal Medicine
DX: J18.9 Pneumonia, unspecified organism (principal); J44.0 Chronic obstructive pulmonary disease with (acute) lower respiratory infection; J44.1 Chronic obstructive pulmonary disease with (acute) exacerbation; I10 Essential (primary) hypertension; E78.5 Hyperlipidemia, unspecified; R07.89 Other chest pain; E11.65 Type 2 diabetes mellitus with hyperglycemia; E11.9 Type 2 diabetes mellitus without complications; I25.10 Atherosclerotic heart disease of native coronary artery without angina pectoris; K76.0 Fatty (change of) liver, not elsewhere classified; E66.9 Obesity, unspecified; Z68.30 Body mass index [BMI] 30.0-30.9, adult; Z95.5 Presence of coronary angioplasty implant and graft
CPT/HCPCS: 0241U-QW; 36415; 71046-TC-FY; 71250-TC; 80048; 80053; 80061; 81003; 82103; 82550; 82553; 82803; 82962; 83036; 83605; 83690; 83735; 83880; 84100; 84443; 84484; 85025; 85379; 85610; 85730; 86850; 86900; 86901; 87899; 93005; 93010; 94010; 94640; 94761; 99285-25; G0378; J1100

== ENCOUNTER 2023-06-29 13:12 | Emergency (ER) | payer OTHER ==
[2023-06-29 13:43] VITALS: TEMP 98.7; BMI 32.3
[2023-06-29] MEDS ORDERED: ACETAMINOPHEN 1000 MG/100 ML BAG IVPB ONE (14:51)
[2023-06-29] MEDS ORDERED: ASPIRIN 81 MG CHEWABLE TABLETS PO ONE (15:10)
[2023-06-29] MEDS ORDERED: METOPROLOL TARTRATE 5 MG/5 ML VIAL IVPUSH ONE (15:24)
[2023-06-29] MEDS ORDERED: ASPIRIN 81 MG CHEWABLE TABLETS ONE ×2 (16:08→16:57)
[2023-06-29] MEDS ORDERED: METOPROLOL TARTRATE 5 MG/5 ML VIAL ONE (16:08)
[2023-06-29] MEDS ORDERED: ACETAMINOPHEN INJECTION 100 ML IVPB ONE (16:08)
[2023-06-29 17:00] LABS: BASO % 0.5 % (0-2.0); EOS % 1.5 % (0-4.5); HEMATOCRIT 39.6 % (35.4-49); HEMOGLOBIN 13.3 GM/dL (11.7-16.9); LYMPH % 37.5 % (8-40); MCH 30.4 pg (25.7-33.7); MCHC 33.7 g/dl (32.0-35.9); MEAN CELL VOLUME 90.2 fl (80-96); MEAN PLT VOLUME 8.3 fl (7.5-11.1); MONO % 8.2 % (3.8-10.2); NEUT % 52.3 % (42.8-82.8); PLATELET COUNT 165 10^3/uL (134-434); RBC 4.38 M/mm3 (4.00-5.60); RDW 13.3 % (11.9-15.9); WHITE BLOOD COUNT 7.9 K/mm3 (4.0-10.0)
[2023-06-29 17:08] LABS: INR 1.09 (0.83-1.09); PROTHROMBIN TIME (PATIENT) 12.6 SEC (9.7-13.0)
[2023-06-29 17:10] LABS: ACTIVATED PTT 33.5 SECONDS (25.2-36.5)
[2023-06-29 17:26] LABS: POTASSIUM 3.7 mmol/L (3.5-5.1)
[2023-06-29 17:28] LABS: CALCIUM 8.6 mg/dL (8.5-10.1)
[2023-06-29 17:29] LABS: ALBUMIN 3.6 g/dl (3.4-5.0); BLOOD UREA NITROGEN 12.1 mg/dL (7-18)
[2023-06-29 17:32] LABS: CREATININE 0.9 mg/dL (0.55-1.3)
[2023-06-29 17:33] LABS: BILIRUBIN,TOTAL 1.2 mg/dL (0.2-1)
[2023-06-29 17:34] LABS: TOT PROT 6.8 g/dl (6.4-8.2)
[2023-06-29 18:58] VITALS: BP 124/82; PULSE 84; RESP 19
== END 2023-06-29 20:06 | disposition home or self-care (01) ==
LOC: JER 13:12
PROC: 3E033GC Introduction of Other Therapeutic Substance into Peripheral Vein, Percutaneous Approach (ICD-10-PCS; principal; 2023-06-29)
PROC: 3E033NZ Introduction of Analgesics, Hypnotics, Sedatives into Peripheral Vein, Percutaneous Approach (ICD-10-PCS; 2023-06-29)
DX: I10 Essential (primary) hypertension (principal); R07.89 Other chest pain; R51.9 Headache, unspecified; M79.89 Other specified soft tissue disorders; R06.02 Shortness of breath; Z20.822 Contact with and (suspected) exposure to COVID-19
CPT/HCPCS: 0241U-QW; 36415; 70450-TC; 71046-TC-FY; 80053; 83880; 84484; 85025; 85610; 85730; 93005; 93010; 99285-25

== ENCOUNTER 2023-09-16 12:53 | Emergency (ER) | payer OTHER ==
[2023-09-16 12:59] VITALS: TEMP 97.8; BMI 29.8
[2023-09-16] MEDS ORDERED: hydrALAZINE HCL 20 MG/ML VIAL ONE (13:30)
[2023-09-16] MEDS: hydrALAZINE HCL 20 MG/ML VIAL IVPUSH ONE (13:48)
[2023-09-16] MEDS ORDERED: ACETAMINOPHEN INJECTION 100 ML IVPB ONE (13:51)
[2023-09-16] MEDS ORDERED: METOCLOPRAMIDE HCL INJECTION 10 MG/2 ML VIAL ONE (13:51)
[2023-09-16 14:01] LABS: BASO % 0.5 % (0-2.0); EOS % 1.1 % (0-4.5); HEMATOCRIT 39.7 % (35.4-49); HEMOGLOBIN 13.6 GM/dL (11.7-16.9); LYMPH % 33.2 % (8-40); MCH 30.6 pg (25.7-33.7); MCHC 34.2 g/dl (32.0-35.9); MEAN CELL VOLUME 89.5 fl (80-96); MEAN PLT VOLUME 8.7 fl (7.5-11.1); MONO % 8.2 % (3.8-10.2); PLATELET COUNT 165 10^3/uL (134-434); RBC 4.44 M/mm3 (4.00-5.60); RDW 13.1 % (11.9-15.9); WHITE BLOOD COUNT 7.8 K/mm3 (4.0-10.0)
[2023-09-16] MEDS: METOCLOPRAMIDE HCL INJECTION 10 MG/2 ML VIAL IVPUSH ONE (14:01)
[2023-09-16] MEDS: ACETAMINOPHEN 1000 MG/100 ML BAG IVPB ONE (14:01)
[2023-09-16 14:08] LABS: INR 0.96 (0.83-1.09); PROTHROMBIN TIME (PATIENT) 11.1 SEC (9.7-13.0)
[2023-09-16 14:11] LABS: ACTIVATED PTT 35.6 SECONDS (25.2-36.5)
[2023-09-16 14:19] LABS: POTASSIUM 3.8 mmol/L (3.5-5.1)
[2023-09-16 14:25] LABS: BLOOD UREA NITROGEN 8.5 mg/dL (7-18); CALCIUM 8.5 mg/dL (8.5-10.1)
[2023-09-16 14:26] LABS: ALBUMIN 3.6 g/dl (3.4-5.0)
[2023-09-16 14:28] LABS: CREATININE 0.7 mg/dL (0.55-1.3)
[2023-09-16 14:30] LABS: BILIRUBIN,TOTAL 1.1 mg/dL (0.2-1); TOT PROT 6.6 g/dl (6.4-8.2)
[2023-09-16] MEDS ORDERED: TETRACAINE 0.5% OPHTH SOLN 2 ML BOTTLE ONE (15:33)
[2023-09-16] MEDS ORDERED: KETOROLAC TROMETHAMINE 15 MG/ML VIAL ONE (15:33)
[2023-09-16] MEDS: KETOROLAC TROMETHAMINE 15 MG/ML VIAL IVPUSH ONE (15:40)
[2023-09-16] MEDS: TETRACAINE 0.5% HCL 0.6ML DROPPER.BOTTLE OU ONE (15:40)
[2023-09-16] MEDS: SUMAtriptan SUCCINATE 50 MG TABLET PO ONE (16:21)
[2023-09-16 17:42] VITALS: BP 129/98; PULSE 90; RESP 18
== END 2023-09-16 17:44 | disposition home or self-care (01) ==
LOC: JER 12:53
PROC: 3E033NZ Introduction of Analgesics, Hypnotics, Sedatives into Peripheral Vein, Percutaneous Approach (ICD-10-PCS; principal; 2023-09-16)
PROC: 3E0333Z Introduction of Anti-inflammatory into Peripheral Vein, Percutaneous Approach (ICD-10-PCS; 2023-09-16)
PROC: 3E033GC Introduction of Other Therapeutic Substance into Peripheral Vein, Percutaneous Approach (ICD-10-PCS; 2023-09-16)
PROC: 3E033GC Introduction of Other Therapeutic Substance into Peripheral Vein, Percutaneous Approach (ICD-10-PCS; 2023-09-16)
DX: R51.9 Headache, unspecified (principal); H53.149 Visual discomfort, unspecified; R11.0 Nausea; I10 Essential (primary) hypertension
CPT/HCPCS: 36415; 70450-TC; 80053; 84484; 85025; 85610; 85730; 86850; 86900; 86901; 93005; 93010; 99285-25; J0131

== ENCOUNTER 2024-01-04 21:25 | Emergency (ER) | payer OTHER ==
[2024-01-04 21:35] VITALS: BP 120/76; PULSE 87; RESP 18; TEMP 98; BMI 30.7
[2024-01-04] MEDS ORDERED: LIDOCAINE PATCH REMOVAL MC SCH (22:00)
[2024-01-04] MEDS ORDERED: CYCLOBENZAPRINE HCL 10 MG TABLET (FP) ONE (23:00)
[2024-01-04] MEDS ORDERED: KETOROLAC TROMETHAMINE 30 MG/1 ML VIAL ONE (23:00)
[2024-01-04] MEDS ORDERED: LIDOCAINE 4% PATCH TP ONE (23:00)
[2024-01-04] MEDS: LIDOCAINE 4% PATCH TP ONE (23:23)
[2024-01-04] MEDS: KETOROLAC TROMETHAMINE 30 MG/1 ML VIAL IM ONE (23:24)
[2024-01-04] MEDS: CYCLOBENZAPRINE HCL 10 MG TABLET (FP) PO ONE (23:24)
== END 2024-01-04 23:23 | disposition home or self-care (01) ==
LOC: JER 21:25 → JERFT 21:25
PROC: 3E0133Z Introduction of Anti-inflammatory into Subcutaneous Tissue, Percutaneous Approach (ICD-10-PCS; principal; 2024-01-04)
DX: M25.512 Pain in left shoulder (principal)
CPT/HCPCS: 73030-TC-LT-FY; 99284-25